=== PATIENT | male | born 1990 | race African-American/Black ===

== ENCOUNTER 2019-11-08 16:18 | Emergency (ER) | payer BC ==
[~2019-11-08] VITALS: Ht 193 cm; Wt 132.0 kg
[2019-11-08 16:21] VITALS: BP 146/98
[2019-11-08] MEDS ORDERED: IBUPROFEN 600MG TABLET PO ONE (17:15)
[2019-11-08 17:19] LABS: BASOPHILS % 0.8 % (0.0-2.0); EOSINOPHILS % 7.3 % (0.0-5.0); HEMATOCRIT. 45.6 % (42.0-52.0); HEMOGLOBIN. 15.8 g/dL (14.0-18.0); MEAN CORPUSCULAR HEMOGLOBIN 30.2 pg (28.0-32.0); MEAN CORPUSCULAR VOLUME 87.5 fL (80.0-94.0); MEAN PLATELET VOLUME 8.2 fl (7.4-10.4); MONOCYTES % 6.2 % (2.0-8.0); NEUTROPHILS % 56.7 % (40.0-76.0); PLATELET 275 x1000/uL (130-400); RED BLOOD CELL COUNT 5.21 mill/uL (4.7-6.1)
[2019-11-08 17:24] LABS: CHLORIDE 109 mEq/L (98-107)
[2019-11-08 18:30] LABS: *AMPHETAMINES SCREEN URINE NEGATIVE (NEGATIVE); *BARBITURATES SCREEN URINE NEGATIVE (NEGATIVE); *BENZODIAZEPINES SCREEN URINE NEGATIVE (NEGATIVE); *COCAINE SCREEN URINE NEGATIVE (NEGATIVE); METHADONE URINE SCREEN NEGATIVE (NEGATIVE); OPIATES URINE SCREEN NEGATIVE (NEGATIVE)
[2019-11-08 18:31] LABS: CANNABINOID URINE SCREEN PRESUMTIVE POSITIVE (NEGATIVE); PHENCYCLIDINE URINE SCREEN NEGATIVE (NEGATIVE)
== END 2019-11-08 19:23 | disposition home or self-care (01) ==
LOC: ER 16:18
DX: R00.2 Palpitations (principal); F12.10 Cannabis abuse, uncomplicated; F17.210 Nicotine dependence, cigarettes, uncomplicated; Z90.49 Acquired absence of other specified parts of digestive tract
CPT/HCPCS: 36415; 71045; 80053; 80305; 84484; 85025; 93005; 99285